=== PATIENT | female | born 1990 | race Caucasian/White ===

== ENCOUNTER 2016-07-08 12:30 | Emergency (ER) | payer OTHER ==
[2016-07-08] MEDS ORDERED: ACETAMINOPHEN 325 MG TABLET PO ONE (12:41)
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
[2016-07-08 16:34] VITALS: BP 140/87
== END 2016-07-08 15:40 | disposition home or self-care (01) ==
LOC: ER 12:30
DX: M54.5 Low back pain (principal); V89.2XXA Person injured in unspecified motor-vehicle accident, traffic, initial encounter
CPT/HCPCS: 72050; 72070; 72110; 99283

== ENCOUNTER 2019-01-14 15:24 | Emergency (ER) | payer SELFPAY ==
[2019-01-14] MEDS ORDERED: CEFAZOLIN INJ 1 GM VIAL IV ONE (17:03)
[2019-01-14] MEDS ORDERED: OXYCODONE-ACETAMINOPHEN 5-325 MG TABLET PO ONE (17:03)
[2019-01-14] MEDS ORDERED: DIPH/PERTUSS(ACELL)/TETANUS VAC/PF 0.5 ML SYR (>=10YO) IM ONE (17:04)
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
--- NOTE | 2019-01-14 17:53 | RADIOLOGY REPORT (SQ) ---
EXAM DESCRIPTION: HAND BILATERAL 3 VIEWS COMPLETED DATE/TIME: 01/14/2019 5:24 pm REASON FOR STUDY: dogbite at the right 5th digit and at the left 3rd digit. COMPARISON: Right hand x-ray 07/08/2016. EXAM PARAMETERS: NUMBER OF VIEWS: Three views right hand. Three views left hand. TECHNIQUE: AP, lateral and oblique radiographic images acquired of bilateral hands. LIMITATIONS: None. FINDINGS: RIGHT HAND: MINERALIZATION: Normal. BONES: No acute fracture or dislocation. There is a remote deformity at the 5th metacarpal. Redemon stration of small subcortical cysts at the scaphoid bone. SOFT TISSUES: No radiopaque foreign body is identified. Mild soft tissue swelling at the dorsum of the right hand and visualized right forearm. LEFT HAND: MINERALIZATION: Normal. BONES: No acute fracture or dislocation. SOFT TISSUES: No radiopaque foreign body is identified. IMPRESSION: No radiographic evidence for acute fracture at bilateral hands. Mild soft tissue swelli ng at the dorsum of the right hand and visualized right forearm. TECHNICAL DOCUMENTATION: JOB ID: [id number] [employer]- All Rights Reserved Reading location - IP/workstation name: [email or web address]
[2019-01-14 18:39] VITALS: BP 132/83
== END 2019-01-14 18:46 | disposition home or self-care (01) ==
LOC: ER 15:24
PROC: 2W3JX1Z Immobilization of Right Finger using Splint (ICD-10-PCS; principal; 2019-01-14)
DX: S41.151A Open bite of right upper arm, initial encounter (principal); S41.152A Open bite of left upper arm, initial encounter; L03.113 Cellulitis of right upper limb; M79.89 Other specified soft tissue disorders; W54.0XXA Bitten by dog, initial encounter
CPT/HCPCS: 73130; 90715; 29130; J0690